=== PATIENT | female | born 1965 | race Asian ===

== ENCOUNTER 2021-11-05 09:38 | Outpatient (CLI) | payer BC ==
--- NOTE | 2021-11-05 11:01 | XRay Report ---
XR spine cervical 2-3V INDICATION / CLINICAL INFORMATION: M54.2 CERVICALGIA. COMPARISON: None available. FINDINGS: BONES/JOINT(S): No acute fracture or subluxation. Minimal degenerative disc disease from C3 through C 7. SOFT TISSUES: No significant abnormality. ADDITIONAL FINDINGS: None. Signer Name: Erik Grey MD Signed: 11/05/2021 10:56 AM Workstation Name: [employer][id number]
== END 2021-11-05 09:39 | disposition home or self-care (01) ==
LOC: XRAY 09:38
PROVIDERS: ATTEND Nurse Practitioner Family
DX: M50.31 Other cervical disc degeneration, high cervical region (principal); M50.323 Other cervical disc degeneration at C6-C7 level; M50.322 Other cervical disc degeneration at C5-C6 level; M50.321 Other cervical disc degeneration at C4-C5 level
CPT/HCPCS: 72040